=== PATIENT | male | born 1945 | race Caucasian/White ===

== ENCOUNTER 2021-02-16 09:16 | Outpatient (CLI) | payer MEDICARE, OTHER ==
[2021-02-17 04:50] LABS: SARS-CoV-2 PCR by NAA Not Detected (NotDetected)
== END 2021-02-16 09:17 | disposition home or self-care (01) ==
LOC: CSHCT 09:16
PROVIDERS: ATTEND Student in an Organized Health Care Education/Training Program
DX: Z20.822 Contact with and (suspected) exposure to COVID-19 (principal); R22.1 Localized swelling, mass and lump, neck
CPT/HCPCS: 70491; 82565; U0003; U0005; 87635

== ENCOUNTER → 2021-02-19 | Day surgery (SDC) | payer MEDICARE, OTHER ==
[~2021-02-19] MED LIST: Lidocaine 1% PF 5 ML VIAL ONE; Sodium Bicarbonate 2.5 MEQ/5 ML VIAL ONE
[2021-02-19 09:06] VITALS: BMI 32.8
== END ==
LOC: CSHULT 07:18
PROVIDERS: ATTEND Student in an Organized Health Care Education/Training Program
DX: R22.1 Localized swelling, mass and lump, neck (principal)
CPT/HCPCS: 10005; 88173; 88305

== ENCOUNTER 2022-03-01 09:58 | Outpatient (CLI) | payer MEDICARE, OTHER | END 2022-03-01 09:59 | disposition home or self-care (01) | LOC: CSHCT 09:58 | PROVIDERS: ATTEND Physician Assistant | DX: Z13.6 Encounter for screening for cardiovascular disorders (principal); Z12.2 Encounter for screening for malignant neoplasm of respiratory organs; F17.210 Nicotine dependence, cigarettes, uncomplicated; J44.9 Chronic obstructive pulmonary disease, unspecified; I71.4 Abdominal aortic aneurysm, without rupture; I25.10 Atherosclerotic heart disease of native coronary artery without angina pectoris | CPT/HCPCS: 71271; 76706 ==

== ENCOUNTER 2022-03-08 12:50 | Outpatient (CLI) | payer MEDICARE, OTHER ==
[~2022-03-08 12:50] MED LIST changes: +Iopamidol 370 76% 100 ML VIAL ONE; -Lidocaine 1% PF 5 ML VIAL ONE; -Sodium Bicarbonate 2.5 MEQ/5 ML VIAL ONE
== END 2022-03-08 12:51 | disposition home or self-care (01) ==
LOC: CSHCT 12:50
PROVIDERS: ATTEND Physician Assistant
DX: I71.4 Abdominal aortic aneurysm, without rupture (principal)
CPT/HCPCS: 74174; 82565

== ENCOUNTER 2022-06-06 12:11 | Outpatient (CLI) | payer MEDICARE, OTHER ==
[2022-06-06] MEDS ORDERED: Iopamidol 300 61% 100 ML VIAL FS ONE (12:13)
== END 2022-06-06 12:12 | disposition home or self-care (01) ==
LOC: CSHCT 12:11
PROVIDERS: ATTEND Student in an Organized Health Care Education/Training Program
DX: J04.0 Acute laryngitis (principal); R59.1 Generalized enlarged lymph nodes; Z92.3 Personal history of irradiation
CPT/HCPCS: 70491; 82565; Q9967

== ENCOUNTER 2023-08-22 12:14 | Outpatient (CLI) | payer MEDICARE, OTHER | END 2023-08-22 12:15 | disposition home or self-care (01) | LOC: CSHCT 12:14 | PROVIDERS: ATTEND Radiology Radiation Oncology | DX: Z12.2 Encounter for screening for malignant neoplasm of respiratory organs (principal); F17.210 Nicotine dependence, cigarettes, uncomplicated | CPT/HCPCS: 71271 ==

== ENCOUNTER 2023-12-15 13:15 | Outpatient (CLI) | payer MEDICARE, OTHER | END 2023-12-15 13:16 | disposition home or self-care (01) | LOC: CSHCT 13:15 | PROVIDERS: ATTEND Specialist | DX: I71.40 Abdominal aortic aneurysm, without rupture, unspecified (principal); R91.1 Solitary pulmonary nodule; K76.9 Liver disease, unspecified; K57.30 Diverticulosis of large intestine without perforation or abscess without bleeding; K59.00 Constipation, unspecified | CPT/HCPCS: 74175; 82565 ==

== ENCOUNTER 2024-08-26 09:54 | Outpatient (CLI) | payer MEDICARE | END 2024-08-26 09:55 | disposition home or self-care (01) | LOC: CSHCT 09:54 | PROVIDERS: ATTEND Specialist | DX: Z12.2 Encounter for screening for malignant neoplasm of respiratory organs (principal); F17.210 Nicotine dependence, cigarettes, uncomplicated; R91.1 Solitary pulmonary nodule | CPT/HCPCS: 71250; 71271 ==

== ENCOUNTER 2025-08-25 12:54 | Outpatient (CLI) | payer MEDICARE | END 2025-08-25 12:55 | disposition home or self-care (01) | LOC: CSHCT 12:54 | PROVIDERS: ATTEND Radiology Radiation Oncology | DX: Z12.2 Encounter for screening for malignant neoplasm of respiratory organs (principal); F17.210 Nicotine dependence, cigarettes, uncomplicated; R91.1 Solitary pulmonary nodule | CPT/HCPCS: 71271 ==